=== PATIENT | female | born 1940 | race Caucasian/White ===

== ENCOUNTER 2022-09-22 06:57 | Day surgery (SDC) | payer MEDICARE, OTHER ==
[~2022-09-22] VITALS: Ht 167.6 cm; Wt 85.0 kg
[~2022-09-22 06:57] MED LIST: ALTACE10 MG PO; CALCIUM500 MG PO; CRESTOR20 MG PO; LASIX40 MG PO; LEVOTHYROXINE125 MC1 PO; NORVASC10 MG PO; PAXIL20 MG PO; PROTONIX40 M1 PO; VITAMIN D310 MC5 PO
--- NOTE | 2022-09-22 10:30 | NUR ---
09/22/22 1030 Elva,Mariel 1007 PT ARRIVED TO PACU, ASLEEP BUT REACTIVE TO TACTILE STIMULI. O2 MASK 6L IN PL[address]. RESP EVEN AND UNLABORED. 1014 PT WAKES AND O2 MASK REMOVED. PT REORIENTED TO PACU. ICE PLACED. 1020 O2 SAT DECREASED AND DEEP BREATHING ENCOURAGED, 2L NC PLACED AND O2 INCREASED. 1025 O2 SAT 87% AND PT ASLEEP. RN WAKES PT AND ENCOURAGES DEEP BREATHING AND COUGHING. 1029 HOB INCREASED PER REQUEST.
--- NOTE | 2022-09-22 10:55 | NUR ---
FRIEND AT BEDSIDE. TAKING SIPS WATER.
--- NOTE | 2022-09-22 11:53 | NUR ---
TRIED O2 OFF DOESNT MAINTAIN SAT SO CONT O2 2L NC.
--- NOTE | 2022-09-22 12:40 | NUR ---
up to br voids qs. on return to bed rz sat 85%. call to dr starkey pt conts to need o2. to keep watching pt .
--- NOTE | 2022-09-22 13:10 | NUR ---
pt off o2 and maintained sat 92 to 93 %. gave is and instructed and pt got up to 1000. states she has this after surgeries before and knows how to use. dr starkey was called for this order and updated on.
--- NOTE | 2022-09-22 13:18 | NUR ---
1315 friend jagjit here to take pt home. dcd per wc.
--- NOTE | 2022-09-26 07:32 | OR ---
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 PROCEDURE: Excision of right posterior cervical triangle skin lesion. ESTIMATED BLOOD LOSS: None. INDICATIONS: Waleska is an 82-year-old female asked to see me for significant skin lesion in the right posterior cervical triangle. She thinks it has been there only two or three weeks. To her knowledge, it was never infected. She had been to her primary care provider. Aspiration was attempted without any fluid return. She was sent for an ultrasound. It measures right around 1.7 x 1.6 x 0.7 cm. It seemed to be an epidermal inclusion cyst based on the ultrasound. It is just below the occiput on the right and it is just a little too large to get removed here in the office under local anesthetic. It is going to require some undermining of the skin to bring that back together. Therefore, she was asked to see me as a general surgeon. Despite her previous surgery, she has been anxious actually about having this removed. I explained to Waleska we would use a transverse elliptical incision with clear margins. The lesion would remove full thickness down in the subcutaneous fat. This would be a day surgery. She will go home afterwards. There is risk including, but not limited to bleeding, infection, scarring, change in contour of the skin as well as recurrent lesions in other locations or possible need for additional surgery based on pathology results. She had expressed understanding and wished to proceed. PROCEDURE IN DETAIL: I met with Waleska in our preop area with the help of our nurse. Waleska and I and everyone were in total agreement with the obvious lesion in the right posterior cervical area just below the right occiput. We marked that appropriately. After this, Waleska was taken in the operating room and placed in the left lateral decubitus position under general endotracheal tube anesthesia with appropriate padding and monitoring. She was Electronically Signed By: DIA MAYO MD 09/26/22 0732 PATIENT NAME: WALESKA WOODWARD OPERATIVE REPORT DATE OF : 36 REPORT #: [id number] PHYSICIAN: DIA MAYO MD PCP: XI MAY MD REPORT IS CONFIDENTIAL AND NOT TO BE RELEASED WITHOUT AUTHORIZATION [facility] [address], [place] [address] Signed given preoperative antibiotics along with subcutaneous heparin. SCDs were utilized. She was then prepped and draped in the usual sterile fashion. We injected local anesthetic underneath the lesion and into the skin and subcutaneous fat. After this, we measured the lesion at 15 mm superior to inferior. We therefore made our transverse incision 45 mm in length. We had 3 mm margins on both sides. We used a 15 blade knife to develop the lesion down through the skin. Electrocautery was used to excise some of the underlying subcutaneous adipose tissue. The lesion was then appropriately marked and passed off the field. The wound was irrigated and suctioned out until clear. We closed the dermis with interrupted 3-0 subcuticular Monocryl sutures. The skin edges were reapproximated with a running 5-0 fast absorbing plain gut suture. Dry gauze and tape were then applied. Waleska was then rotated into the supine position on her hospital bed, awakened from her anesthesia, extubated in the OR and taken to recovery room in stable condition. Dia Mayo MD ALB/MODL /[id number] cc: MD Dia Hoyt MD Copies: XI MAY DMD, ANDREW L MD ~ Electronically Signed By: DIA MAYO MD 09/26/22 0732 PATIENT NAME: WALESKA WOODWARD JOSS OPERATIVE REPORT DATE OF : 36 REPORT #: [id number] PHYSICIAN: DIA MAYO MD PCP: XI MAY MD REPORT IS CONFIDENTIAL AND NOT TO BE RELEASED WITHOUT AUTHORIZATION
--- NOTE | 2022-09-29 13:07 | PATH ---
[facility] [address] [place], [place] [address] Signed SPECIMEN(S): A RIGHT POSTERIOR NECK SPECIMEN SOURCE: A. RIGHT POSTERIOR NECK CLINICAL HISTORY: Posterior cervical skin lesion. 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 NRT:cml:C2NR MICROSCOPIC EXAMINATION: Histologic sections of all submitted blocks are examined by light microscopy. These findings, together with the gross examination, support the pathologic diagnosis. GROSS DESCRIPTION: The specimen, labeled "SN, A," and designated on the requisition "skin lesion right posterior neck, long stitch lateral, double stitch medial, short stitch superior, check margins," is received in formalin and consists of a ramsey, 4.7 x 1.9 x 1.2 cm skin ellipse that is oriented with a single short suture indicating lateral, a double short suture indicating medial, and a single short suture indicating superior. For the purpose of this dictation the single long suture is arbitrarily designated 12:00, the double short sutures arbitrarily designated 6:00, and a single short suture is arbitrarily designated 9:00. The specimen is inked as follows: 12 clock-3:00 = yellow; 3:00-6:00 = orange; 6:00-9:00-12:00 = green; deep = blue. On the skin surface is an ill-defined, ramsey-white, indurated, 1.7 x 1.5 x 0.7 cm nodule that is 0.3 cm from the nearest peripheral resection margins, approximately 3:00 and 9:00. The specimen is sectioned from 12:00 to 6:00. The lesion does not grossly appear to invade into the subcutaneous tissue and is 1.0 cm from the nearest deep margin. The subcutaneous tissue is yellow, homogenous, and grossly unremarkable without a discrete mass/lesion. Crew Mess Attendant sections are submitted as follows: PATIENT NAME: ASHIA WOODWARD PATHOLOGY DATE OF : 36 REPORT #: [id number] PHYSICIAN: BILL PATHOLOGY PCP: XI MAY MD REPORT IS CONFIDENTIAL AND NOT TO BE RELEASED WITHOUT AUTHORIZATION [facility] [address] [place], [place] [address] Signed A1 12:00 and 6:00 tips A2 section between 12:00 and lesion; section between the lesion and 6:00 A3-A4 lesion to nearest margins AI (under the direct supervision of a pathologist) The Gross Description was prepared using a voice recognition system. The report was reviewed for accuracy; however, sound-alike word errors, addition and/or deletions may occur. If there is any question about this report, please contact Client Services. PERFORMING LABORATORY: The technical component was performed by [facility], [address] [place] [id number] (CLIA# [id number]). Professional interpretation was performed by [facility], [facility], [address], [place] [address] (CLIA# [id number]). Diagnostician: Rebecca Newsome MD Pathologist Electronically Signed 09/29/2022 Copies: ~ PATIENT NAME: ASHIA WOODWARD PATHOLOGY DATE OF : 36 REPORT #: [id number] PHYSICIAN: BILL PATHOLOGY PCP: XI MAY MD REPORT IS CONFIDENTIAL AND NOT TO BE RELEASED WITHOUT AUTHORIZATION
== END 2022-09-22 13:15 | disposition home or self-care (01) ==
LOC: DS 06:57
PROVIDERS: ATTEND Colon & Rectal Surgery
PROC: 0HB4XZZ Excision of Neck Skin, External Approach (ICD-10-PCS; principal; 2022-09-22 08:45)
DX: L85.8 Other specified epidermal thickening (principal); L72.0 Epidermal cyst; E89.0 Postprocedural hypothyroidism; I25.10 Atherosclerotic heart disease of native coronary artery without angina pectoris; I10 Essential (primary) hypertension; M19.90 Unspecified osteoarthritis, unspecified site; Z96.643 Presence of artificial hip joint, bilateral; Z88.5 Allergy status to narcotic agent
CPT/HCPCS: 88305; J0690; J1644; J2405; J2704; J3010; J7121